=== PATIENT | male | born 1970 | race Two or more races ===

== ENCOUNTER 2020-09-15 06:35 | Day surgery (SDC) | payer OTHER ==
[2020-09-15] MEDS ORDERED: PERCOCET 5-3251 EACH PO (08:31)
[2020-09-15] MEDS ORDERED: COLACE100 MG PO (08:31)
== END 2020-09-15 15:00 | disposition home or self-care (01) ==
LOC: CIR.AMB 06:35
PROVIDERS: ATTEND Surgery
DX: K60.3 Anal fistula (principal); Z20.828 Contact with and (suspected) exposure to other viral communicable diseases

== ENCOUNTER 2021-06-29 06:34 | Day surgery (SDC) | payer OTHER ==
[~2021-06-29 06:34] MED LIST: COLACE100 MG PO; PERCOCET 5-3251 EACH PO
[2021-06-29] MEDS ORDERED: PERCOCET 5-3251 EACH PO (09:21)
[2021-06-29] MEDS ORDERED: COLACE100 MG PO (09:21)
== END 2021-06-29 14:05 | disposition home or self-care (01) ==
LOC: CIR.AMB 06:34
PROVIDERS: ATTEND Surgery
DX: K60.3 Anal fistula (principal); K64.8 Other hemorrhoids; Z20.822 Contact with and (suspected) exposure to COVID-19

== ENCOUNTER 2022-03-02 21:48 | Emergency (ER) | payer OTHER ==
[~2022-03-02] VITALS: Ht 160 cm; Wt 70.3 kg
== END 2022-03-03 | disposition home or self-care (01) ==
LOC: ER 21:48
DX: M94.0 Chondrocostal junction syndrome [Tietze] (principal); R07.9 Chest pain, unspecified; Z87.891 Personal history of nicotine dependence

== ENCOUNTER → 2022-03-03 | Emergency (ER) | payer OTHER | END | disposition home or self-care (01) | LOC: ER 01:43 | DX: R07.9 Chest pain, unspecified (principal); M94.0 Chondrocostal junction syndrome [Tietze] ==

== ENCOUNTER 2023-05-13 07:47 | Emergency (ER) | payer OTHER ==
[~2023-05-13] VITALS: Ht 160 cm; Wt 68.0 kg
== END 2023-05-13 19:55 | disposition home or self-care (01) ==
LOC: ER 07:47
DX: K61.0 Anal abscess (principal)